=== PATIENT | male | born 1965 | race Caucasian/White ===

== ENCOUNTER 2017-01-18 08:53 | Emergency (ER) | payer MEDICAID ==
[~2017-01-18] VITALS: Ht 175.3 cm; Wt 95.8 kg
[2017-01-18 09:03] VITALS: BP 158/94
--- NOTE | 2017-01-18 10:51 | NUR ---
Patient ambulated to bed 4. RN evaluating patient at bedside.
--- NOTE | 2017-01-18 10:55 | NUR ---
PATIENT PRESENTS TO ED WITH C/O RIGHT KNEE PAIN . PT STATES HE TOOK A MIS-STEP OFF A CURB 3 MONTHS AGO AND HAS SUFFERED FROM INTERMITTENT PAIN SINCE THAT TIME, WITH THE PAIN BECOMING UNBEARABLE OVER THE PAST 2 WEEKS . DENIES N/V/D; SKIN IS PINK/WARM/DRY; AAOX4 WITH EVEN AND STEADY GAIT; LUNGS CLEAR BL; HR EVEN AND REGULAR; PT DENIES ANY FEVER, CP, SOB, OR COUGH AT THIS TIME; PATIENT STATES PAIN OF 9/10 AT THIS TIME; VSS; PATIENT POSITIONED FOR COMFORT; HOB ELEVATED; BEDRAILS UP X2; BED DOWN. ER MD MADE AWARE OF PT STATUS.
--- NOTE | 2017-01-18 11:00 | NUR ---
[facility] AT BEDSIDE.
[2017-01-18] MEDS ORDERED: HYDROcodone/APAP 5/325 MG 1 TAB TAB PO ONE (11:10)
[2017-01-18 11:42] VITALS: BP 160/88
== END 2017-01-18 11:42 | disposition home or self-care (01) ==
LOC: MED 08:53
DX: M25.561 Pain in right knee (principal); J44.9 Chronic obstructive pulmonary disease, unspecified; I25.10 Atherosclerotic heart disease of native coronary artery without angina pectoris; I10 Essential (primary) hypertension; Z88.0 Allergy status to penicillin
CPT/HCPCS: 29505; 73562; 99284

== ENCOUNTER 2017-04-09 11:05 | Emergency (ER) | payer MEDICAID ==
[~2017-04-09] VITALS: Ht 175.3 cm; Wt 94.9 kg
[2017-04-09 11:17] VITALS: BP 154/100
--- NOTE | 2017-04-09 11:20 | NUR ---
PATIENT PRESENTS TO ED WITH 51M BIB C/O RT KNEE PAIN X 3 MONTHS. PT STATES " I WAS RUNNING WITH MY DOG AND MY LEG WENT OFF SIDEWAYS ABOUT 3 MONTHS AGO AND I WORK [employer]". HX: PT DENIES RX: MOTRIN . DENIES N/V/D; SKIN IS PINK/WARM/DRY; AAOX4 WITH EVEN AND STEADY GAIT; LUNGS CLEAR BL; HR EVEN AND REGULAR; PT DENIES ANY FEVER, CP, SOB, OR COUGH AT THIS TIME; PATIENT STATES PAIN OF 10/10 AT THIS TIME; VSS; PATIENT POSITIONED FOR COMFORT; HOB ELEVATED; BEDRAILS UP X2; BED DOWN. ER MD MADE AWARE OF PT STATUS.
--- NOTE | 2017-04-09 11:22 | NUR ---
Patient ambulated to bed 8. RN evaluating patient at bedside.
--- NOTE | 2017-04-09 11:33 | NUR ---
Dr. Turner evaluating patient at bedside.
--- NOTE | 2017-04-09 12:04 | NUR ---
PATIENT DID NOT WANT KNEE BRACE
--- NOTE | 2017-04-09 12:06 | NUR ---
Dr. Turner re-evaluating patient at bedside.
[2017-04-09 13:09] VITALS: BP 155/97
== END 2017-04-09 12:18 | disposition home or self-care (01) ==
LOC: MED 11:05
DX: M25.561 Pain in right knee (principal); W18.30XA Fall on same level, unspecified, initial encounter; Y93.89 Activity, other specified; Y92.89 Other specified places as the place of occurrence of the external cause; Y99.8 Other external cause status
CPT/HCPCS: 29505; 99283